=== PATIENT | female | born 1965 | race Caucasian/White ===

== ENCOUNTER 2020-12-24 19:08 | Inpatient (IN) | payer SELFPAY ==
[2020-12-24] MEDS ORDERED: HYDROcodone/Acetaminophen 7.5/325 mg Tablet PO PRN (21:52)
[2020-12-24] MEDS ORDERED: Senokot S 8.6-50 MG TAB PO PRN (21:52)
[2020-12-24] MEDS ORDERED: Ondansetron PF 4 MG/2 ML Vial IVP PRN (21:52)
[2020-12-24] MEDS ORDERED: Acetaminophen 325 MG TAB PO PRN (21:52)
[2020-12-24 21:53] VITALS: BMI 21.4
[2020-12-24] MEDS ORDERED: Enoxaparin Sodium 40 MG/0.4 ML SYRINGE SC SCH (22:00)
[2020-12-24] MEDS ORDERED: hydrALAZINE 20 MG/ML VIAL SLOW IVP PRN (22:03)
[2020-12-24] MEDS: Nicotine 21 MG PATCH TD SCH (22:37)
[2020-12-25] MEDS: Levothyroxine Sodium 25 MCG TAB PO SCH (05:49)
[2020-12-25] MEDS: Levothyroxine Sodium 100 MCG TAB PO SCH (05:49)
[2020-12-25] MEDS: HYDROcodone/Acetaminophen 5/325 mg Tablet PO PRN (05:55)
[2020-12-25] MEDS: Guaifenesin DM 100-10/5 ML UDCUP PO PRN (05:55)
[2020-12-25 07:43] LABS: #Monocytes 0.9 thou/uL (0.11-0.59); #Neutrophils 7.4 thou/uL (1.40-6.50); %Basophils 0.2 % (0.0-1.0); %Eosinophils 0.1 % (0.0-10.0); %Monocytes 9.2 % (0.0-10.0); %Neutrophils 79.5 % (42.0-75.0); Hemoglobin 12.3 g/dL (12.0-16.0); Mean Corpuscular HGB CONC 33.9 g/dL (32.0-36.0); Mean Corpuscular Hemoglobin 32.2 pg (27.0-31.0); Mean Corpuscular Volume 95.2 fL (78.0-98.0); Platelet Count 194 thou/uL (130-400); RBC Distribution Width 13.3 % (11.5-14.5); Red Blood Cell (RBC) Count 3.82 mill/uL (4.20-5.40); White Blood Cell (WBC) Count 9.2 thou/uL (4.8-10.8)
[2020-12-25 07:57] LABS: ALT (SGPT) 14 U/L (8-55); AST (SGOT) 22 U/L (5-34); Albumin 3.9 g/dL (3.5-5.0); Alkaline Phosphatase 53 U/L (40-110); Anion Gap 11 mmol/L (10-20); BUN (Urea Nitrogen) 14 mg/dL (9.8-20.1); Bilirubin, Total 0.5 mg/dL (0.2-1.2); Calc. Creatinine Clearance 75 mL/min (70-130); Calcium 8.9 mg/dL (7.8-10.44); Carbon Dioxide 32 mmol/L (22-29); Chloride 99 mmol/L (98-107); Globulin 2.5 g/dL (2.4-3.5); Glucose 119 mg/dL (70-105); Protein, Total 6.4 g/dL (6.0-8.3); Sodium 138 mmol/L (136-145)
[2020-12-25] MEDS: Lisinopril 2.5 MG TAB PO SCH (08:52)
[2020-12-25] MEDS: Azithromycin 500 MG in Sodium Chloride 0.9% 250 ML 250 ML IVPB SCH (08:52)
[2020-12-25] MEDS: Atorvastatin Calcium 20 MG TAB PO SCH (08:53)
[2020-12-25] MEDS: methylPREDNISolone Sod Succ 40 MG VIAL IVP SCH ×2 (08:53→22:13)
[2020-12-25] MEDS: cefTRIAXone\\ROCEPHIN 2 GM in Sodium Chloride 0.9% 100 ML IVPB SCH (13:43)
[2020-12-25] MEDS: Mometasone 200 MCG/Formoterol 5 MCG 120 PUFF INHALER INH SCH (18:03)
[2020-12-25] MEDS: Nicotine 21 MG PATCH TD SCH (22:10)
[2020-12-25] MEDS: Enoxaparin Sodium 40 MG/0.4 ML SYRINGE SC SCH (22:13)
[2020-12-25] MEDS: Melatonin 3 MG TAB PO PRN (22:24)
[2020-12-26] MEDS: Mometasone 200 MCG/Formoterol 5 MCG 120 PUFF INHALER INH SCH ×2 (07:06→18:04)
[2020-12-26] MEDS: Levothyroxine Sodium 25 MCG TAB PO SCH (07:08)
[2020-12-26] MEDS: Levothyroxine Sodium 100 MCG TAB PO SCH (07:08)
[2020-12-26] MEDS: methylPREDNISolone Sod Succ 40 MG VIAL IVP SCH ×2 (09:00→21:24)
[2020-12-26] MEDS: Lisinopril 2.5 MG TAB PO SCH (09:00)
[2020-12-26] MEDS: Atorvastatin Calcium 20 MG TAB PO SCH (09:00)
[2020-12-26] MEDS: Guaifenesin DM 100-10/5 ML UDCUP PO PRN (09:01)
[2020-12-26] MEDS: Azithromycin 500 MG in Sodium Chloride 0.9% 250 ML 250 ML IVPB SCH (10:17)
[2020-12-26] MEDS ORDERED: Temazepam 15 MG CAP PO PRN (10:55)
[2020-12-26] MEDS: cefTRIAXone\\ROCEPHIN 2 GM in Sodium Chloride 0.9% 100 ML IVPB SCH (18:11)
[2020-12-26] MEDS: HYDROcodone/Acetaminophen 5/325 mg Tablet PO PRN (21:22)
[2020-12-26] MEDS: Melatonin 3 MG TAB PO PRN (21:22)
[2020-12-26] MEDS: Enoxaparin Sodium 40 MG/0.4 ML SYRINGE SC SCH (21:24)
[2020-12-26] MEDS: Nicotine 21 MG PATCH TD SCH (21:24)
[2020-12-27] MEDS: Levothyroxine Sodium 25 MCG TAB PO SCH (06:47)
[2020-12-27] MEDS: Levothyroxine Sodium 100 MCG TAB PO SCH (06:47)
[2020-12-27] MEDS: Lisinopril 2.5 MG TAB PO SCH (08:45)
[2020-12-27] MEDS: Atorvastatin Calcium 20 MG TAB PO SCH (08:45)
[2020-12-27] MEDS: methylPREDNISolone Sod Succ 40 MG VIAL IVP SCH ×2 (08:46→20:57)
[2020-12-27] MEDS: Azithromycin 500 MG in Sodium Chloride 0.9% 250 ML 250 ML IVPB SCH (10:18)
[2020-12-27] MEDS: cefTRIAXone\\ROCEPHIN 2 GM in Sodium Chloride 0.9% 100 ML IVPB SCH (14:42)
[2020-12-27] MEDS: Mometasone 200 MCG/Formoterol 5 MCG 120 PUFF INHALER INH SCH ×2 (15:28→19:15)
[2020-12-27] MEDS: Enoxaparin Sodium 40 MG/0.4 ML SYRINGE SC SCH (20:56)
[2020-12-27] MEDS: Nicotine 21 MG PATCH TD SCH (20:57)
[2020-12-28] MEDS: Levothyroxine Sodium 100 MCG TAB PO SCH (05:05)
[2020-12-28] MEDS: Levothyroxine Sodium 25 MCG TAB PO SCH (05:06)
[2020-12-28] MEDS: Mometasone 200 MCG/Formoterol 5 MCG 120 PUFF INHALER INH SCH (07:38)
[2020-12-28] MEDS: Azithromycin 500 MG in Sodium Chloride 0.9% 250 ML 250 ML IVPB SCH (08:43)
[2020-12-28] MEDS: Lisinopril 2.5 MG TAB PO SCH (08:44)
[2020-12-28] MEDS: Atorvastatin Calcium 20 MG TAB PO SCH (08:45)
[2020-12-28] MEDS: methylPREDNISolone Sod Succ 40 MG VIAL IVP SCH (08:45)
[2020-12-28] MEDS: cefTRIAXone\\ROCEPHIN 2 GM in Sodium Chloride 0.9% 100 ML IVPB SCH (14:07)
[2020-12-28 15:51] VITALS: BP 153/82; TEMP 97.9
== END 2020-12-28 17:21 | disposition home or self-care (01) | DRG 193 ==
LOC: T4-A 21:41
PROVIDERS: ADMIT Internal Medicine; ATTEND Family Medicine
DX: J18.9 Pneumonia, unspecified organism (principal); J96.01 Acute respiratory failure with hypoxia; J44.1 Chronic obstructive pulmonary disease with (acute) exacerbation; J44.0 Chronic obstructive pulmonary disease with (acute) lower respiratory infection; I10 Essential (primary) hypertension; E03.9 Hypothyroidism, unspecified; F17.210 Nicotine dependence, cigarettes, uncomplicated; E78.5 Hyperlipidemia, unspecified; Z79.899 Other long term (current) drug therapy; Z90.49 Acquired absence of other specified parts of digestive tract; Z98.890 Other specified postprocedural states; Z71.6 Tobacco abuse counseling
CPT/HCPCS: 36415; 71046; 80053; 85025; J0456; J0696; J1650; J2920; J3490; J7050; J7620

== ENCOUNTER 2024-12-29 09:52 | Outpatient (CLI) | payer OTHER | END 2024-12-29 09:53 | disposition home or self-care (01) | LOC: BICCT 09:52 | PROVIDERS: ATTEND Internal Medicine Critical Care Medicine | DX: J44.9 Chronic obstructive pulmonary disease, unspecified (principal); J43.9 Emphysema, unspecified; K86.1 Other chronic pancreatitis; D35.02 Benign neoplasm of left adrenal gland | CPT/HCPCS: 71250 ==